=== PATIENT | male | born 1985 | race Caucasian/White ===

== ENCOUNTER 2017-01-27 06:50 | Emergency (ER) | payer OTHER ==
[~2017-01-27] VITALS: Ht 190.5 cm; Wt 90.7 kg
[2017-01-27 06:54] VITALS: BP 146/84
[2017-01-27] MEDS ORDERED: NORCO 5-325 TA1 EACH PO (08:01)
[2017-01-27] MEDS ORDERED: KEFLEX500 MG PO (08:01)
== END 2017-01-27 08:06 | disposition home or self-care (01) ==
LOC: ER 06:50
DX: S61.213A Laceration without foreign body of left middle finger without damage to nail, initial encounter (principal); W45.8XXA Other foreign body or object entering through skin, initial encounter; Y93.89 Activity, other specified; Y92.89 Other specified places as the place of occurrence of the external cause; Y99.9 Unspecified external cause status